=== PATIENT | male | born 1985 | race Hispanic/Latino ===

== ENCOUNTER 2024-03-05 21:25 | Emergency (ER) | payer SELFPAY ==
[2024-03-05] MEDS ORDERED: Boostrix 0.5 ML (Tdap) VIAL (>/=7 yrs of age) ONE (22:05)
[2024-03-05] MEDS ORDERED: Cephalexin 500 MG CAP ONE (23:03)
[2024-03-05] MEDS ORDERED: HYDROcodone/Acetaminophen 5/325 mg Tablet ONE ×2 (23:03→23:07)
== END 2024-03-05 23:29 | disposition home or self-care (01) ==
LOC: MADERS 21:25
DX: S61.330A Puncture wound without foreign body of right index finger with damage to nail, initial encounter (principal); Z23 Encounter for immunization; W34.00XA Accidental discharge from unspecified firearms or gun, initial encounter; Y99.0 Civilian activity done for income or pay
CPT/HCPCS: 90471; 90715